=== PATIENT | male | born 1960 ===

== ENCOUNTER 2023-01-12 08:55 | Day surgery (SDC) | payer OTHER ==
[~2023-01-12] VITALS: Ht 172.7 cm; Wt 96.9 kg
[2023-01-12] MEDS ORDERED: ASPI81CH (09:21)
[2023-01-12] MEDS ORDERED: ALBU90OI (09:21)
[2023-01-12] MEDS ORDERED: Aspir 8181 MG (09:21)
[2023-01-12] MEDS ORDERED: FLUT1DIS2 (09:22)
[2023-01-12] MEDS ORDERED: MULVITA (09:22)
[2023-01-12] MEDS ORDERED: FISH OIL 1,2001 EAC7 (09:22)
== END 2023-01-12 11:17 | disposition home or self-care (01) ==
LOC: ORSCSDS 08:55
PROVIDERS: Internal Medicine Gastroenterology
PROC: 0DBL8ZX Excision of Transverse Colon, Via Natural or Artificial Opening Endoscopic, Diagnostic (ICD-10-PCS; principal; 2023-01-12 10:15)
PROC: 0DBN8ZX Excision of Sigmoid Colon, Via Natural or Artificial Opening Endoscopic, Diagnostic (ICD-10-PCS; principal; 2023-01-12 10:15)
PROC: 0DBM8ZX Excision of Descending Colon, Via Natural or Artificial Opening Endoscopic, Diagnostic (ICD-10-PCS; principal; 2023-01-12 10:15)
DX: Z12.11 Encounter for screening for malignant neoplasm of colon (principal); D12.4 Benign neoplasm of descending colon; D12.3 Benign neoplasm of transverse colon; K63.5 Polyp of colon; I10 Essential (primary) hypertension; Z79.899 Other long term (current) drug therapy; F17.220 Nicotine dependence, chewing tobacco, uncomplicated
CPT/HCPCS: 88305; J2250; J2704; J7120